=== PATIENT | female | born 1985 | race Hispanic/Latino ===

== ENCOUNTER 2024-09-04 21:29 | Emergency (ER) | payer BC ==
[2024-09-05] MEDS ORDERED: Lidocaine 1% w/Epinephrine 1:100K 20 ML VIAL ONE (00:03)
[2024-09-05] MEDS ORDERED: Boostrix 0.5 ML (Tdap) VIAL (>/=7 yrs of age) ONE (00:03)
[2024-09-05] MEDS ORDERED: Acetaminophen 500 MG TAB ONE (01:20)
[2024-09-05] MEDS ORDERED: Bacitracin 1 PK ONE (01:20)
== END 2024-09-05 01:38 | disposition home or self-care (01) ==
LOC: ERS 21:29
DX: S61.215A Laceration without foreign body of left ring finger without damage to nail, initial encounter (principal); S61.211A Laceration without foreign body of left index finger without damage to nail, initial encounter; S61.216A Laceration without foreign body of right little finger without damage to nail, initial encounter; W25.XXXA Contact with sharp glass, initial encounter; Z23 Encounter for immunization
CPT/HCPCS: 12002; 90471; 90715